=== PATIENT | female | born 1980 | race Hispanic/Latino ===

== ENCOUNTER → 2020-07-25 | Outpatient (CLI) | payer BC | END | disposition home or self-care (01) | LOC: RAH 15:55 | PROVIDERS: ATTEND Internal Medicine | DX: N23 Unspecified renal colic (principal); Z90.49 Acquired absence of other specified parts of digestive tract | CPT/HCPCS: 74018 ==

== ENCOUNTER → 2021-04-11 | Outpatient (CLI) | payer BC | END | disposition home or self-care (01) | LOC: RAH 15:36 | PROVIDERS: ATTEND Internal Medicine | DX: Z12.31 Encounter for screening mammogram for malignant neoplasm of breast (principal) | CPT/HCPCS: 77067 ==

== ENCOUNTER → 2022-04-12 | Outpatient (CLI) | payer BC | END | disposition home or self-care (01) | LOC: RAH 14:47 | PROVIDERS: ATTEND Internal Medicine | DX: Z12.31 Encounter for screening mammogram for malignant neoplasm of breast (principal) | CPT/HCPCS: 77067 ==